=== PATIENT | female | born 2000 | race Caucasian/White ===

== ENCOUNTER 2023-05-11 19:21 | Emergency (ER) | payer OTHER, SELFPAY ==
[2023-05-11 19:23] VITALS: BP 120/85
[2023-05-11 19:44] LABS: % Basophils 0.6 % (0-2); % Eosinophils 0.8 % (0-6); % Immature Granulocytes 0.3 % (0-0.5); % Lymphocytes 22.5 % (20.5-51.1); % Monocytes 8.6 % (1.7-9.3); % Neutrophils 67.2 % (42.2-75.2); Absolute Basophils 0.1 10^3/uL (0-0.2); Absolute Eosinophils 0.1 10^3/uL (0-0.7); Absolute Lymphocytes 2.6 10^3/uL (1.2-3.4); Absolute Neutrophils 7.8 10^3/uL (1.4-6.5); Hematocrit 37.8 % (37.0-47.0); Hemoglobin 13.5 g/dL (12.0-16.0); Mean Corp Hgb Conc. 35.7 g/dL (33.0-37.0); Mean Corpuscular Hgb 31.8 pg (27.0-31.0); Mean Corpuscular Volume 88.9 fL (81.0-99.0); Mean Platelet Volume 10.6 fL (7.4-10.4); Nucleated Red Blood Cells % 0 %; Platelet Count 228 10^3/uL (130-400); Red Blood Cell Count 4.25 10^6/uL (4.20-5.40); Red Cell Dist. Width 11.8 % (11.5-14.5); Urine Albumin Negative (Neg - Trace); Urine Bilirubin Negative (Negative); Urine Character Clear (Clear); Urine Color Yellow; Urine Glucose Negative (Negative); Urine Ketone Negative (Negative); Urine Leukocyte Negative (Negative); Urine Nitrite Negative (Negative); Urine Occult Blood Negative (Negative); Urine Urobilinogen Negative (Neg - 1+); White Blood Cell Count 11.6 10^3/uL (4.8-10.8)
[2023-05-11 19:56] LABS: HCG, Serum Qualitative Screen Negative
[2023-05-11 20:00] LABS: ALT (SGPT) 17 U/L (0-35); AST (SGOT) 24 U/L (14-36); Albumin 4.3 g/dl (3.5-5.0); Alkaline Phosphatase 45 U/L (38-126); Blood Urea Nitrogen 9 mg/dl (7-17); Calcium 9.6 mg/dl (8.4-10.2); Carbon Dioxide 30 mmol/L (22-30); Chloride 99 mmol/L (98-107); Glucose 85 mg/dl (70-99); Potassium 4.1 mmol/L (3.5-5.1); Sodium 138 mmol/L (135-145); Total Bilirubin 0.9 mg/dl (0.2-1.3); eGFR > 60.00
[2023-05-11 20:01] LABS: Lipase 136 U/L (23-300)
--- NOTE | 2023-05-11 20:18 | ED.GENMED ---
History of Present Illness
General
Chief Complaint: Abdominal Pain
Source: patient
Exam Limitations: none
Time Seen by Provider: 05/11/23 20:03
Travel History
Have you had any contact with someone who has COVID-19?: No
Do you have any symptoms of coronavirus? Fever > 100 degrees, chills, cough, shortness of breath, sore throat, loss of taste or smell, muscle aches, or headache?: No
History of Present Illness
History of Present Illness:
This is a 23 year old female that comes in with c/o right sided lower abd pain. States that last night at 4am she was awakened with pain. States that she went to [place] and on the way back she kind of felt faint. States that she took something for
pain and it took her about 1 hour to fall back to sleep. States that she worked today. States that all day she felt like her abd just felt swollen. State that she conroy discomfort on the right side. States that she is not due for her Period for another
2 weeks. States that she recently had an IUD placed. Denies any fever, chills, chest pain, SOB, nausea, vomiting, diarrhea, headahe, dizziness, urinary burning.
Past History
Past History
ED Past Medical History: Other (IUD , )
ED Past Surgical History: None and Tonsilectomy
Social History
Tobacco: Non-smoker
Alcohol: Occasional
Personal: Single
Living: with family
Employment: Employed
Review of Systems
Review of Systems
All Other Systems: ROS reviewed and negative except as documented in HPI and ROS
Constitutional: Reports no symptoms; Denies fever or chills
EENT: Reports no symptoms
Respiratory: Reports no symptoms; Denies cough or trouble breathing
Cardiac: Reports no symptoms; Denies chest pain
ABD/GI: Reports abdominal pain (Right Sided); Denies nausea or diarrhea
: Reports no symptoms; Denies dysuria, frequency or urgency
Musculoskeletal: Reports no symptoms
Skin: Reports no symptoms
Neurological: Reports no symptoms; Denies dizzy or headache
Psychiatric: Reports no symptoms
Phy Exam
General Physical Exam
General Presentation: well appearing and no apparent distress
General age: appears stated age
General Skin: warm and dry
General Habitus: normal
General Mental: alert
General Hydration: appears well hydrated
ENT Exam
ENT Exam: TM's normal, pharynx normal and neck supple
Eye Exam
Eye Exam: EOMI
Cardiovascular Exam
Cardiovascular Exam: regular rate/rhythm, no edema, no murmur and normal peripheral pulses
Pulmonary Exam
Pulmonary Exam: lungs clear, no respiratory distress, no rales, chest non tender, no crackles, no rhonchi, no wheezing and no cough
Gastrointestinal Exam
Gastrointestinal Exam: normal bowel sounds, soft, no organomegaly, no pulsatile mass, non distended and tender (Right lower abd tenderness with palpation)
Musculoskeletal Exam
Musculoskeletal Exam: full ROM and no edema
Skin Exam
Skin Exam: normal color, warm/dry, no rash and no petechia
Psychiatric Exam
Psychiatric Exam: normal mood/affect
Course
Orders/Labs/Results
Orders:
Orders
05/11/23 19:29
Test Result ONCE
05/11/23 19:37
CBC/With Diff [Complete Blood Count/With Diff] Urgent
CMP [Comprehensive Metabolic Panel] Urgent
HCG, Serum Qualitative Screen Urgent
Lipase Urgent
Urinalysis Reflex To Culture Urgent
Date Specimen was Collected: 05/11/23
Time Specimen was Collected: 19:28
05/11/23 20:17
0.9% Sodium Chloride 1000 ml [Nss] 1,000 ml IV BOLUS
Iohexol [Omnipaque] See Protocol PO NOW STA
US Pelvis [US Pelvis Only (non-obstetric)] Urgent
Comment:
Reason For Exam: Right sided abd pain
05/11/23 20:18
CT Abd/pel W Iv And Oral Contr Urgent
Comment:
Reason For Exam: right lower abd pain
Abnormal Lab Results
05/11/23
19:37
WBC 11.6 H 10^3/uL
(4.8-10.8)
MCH 31.8 H pg
(27.0-31.0)
MPV 10.6 H fL
(7.4-10.4)
Absolute Neuts (auto) 7.8 H 10^3/uL
(1.4-6.5)
Absolute Monos (auto) 1.0 H 10^3/uL
(0.1-0.6)
05/11/23 19:37
05/11/23 19:37
WBC very slightly elevated. HCG negative, Urine negative for infection.
Vital Signs
Initial and Last Documented VS:
Initial Vital Signs
Temp Pulse Resp BP Pulse Ox
97.8 F 91 18 120/85 98
05/11/23 19:23 05/11/23 19:23 05/11/23 19:23 05/11/23 19:23 05/11/23 19:23
Last Documented Vital Signs
Temp Pulse Resp BP Pulse Ox
97.8 F 86 18 117/80 98
05/11/23 19:23 05/11/23 22:55 05/11/23 19:23 05/11/23 22:55 05/11/23 19:23
MDM/Problems Addressed
Differential Diagnosis Includes:
Ovarian cyst, Appendicitis
MDM/Problems Addressed:
This is a 23 year old female that comes in with c/o RLQ pain. states that this started a 4am and has continued throughout the day.
Will get labs, Pelvic ultrasound and have patient drink for CT. If US gives answer will hold off on CT scan.
back to see patient. Patient was told earlier that her US was normal. Explained at this time that her CT is negative for appendicitis and does show some fecal material in the abd proximal colon. There is also an Intussusception in the left upper
quadrant but patient has no pain there at all. Patient has not had any vomiting. Explained that she can follow up with the GI specialist for further evaluation. Patient states that she has stool softners at home and will increase her water. Patient
to return with increased or changing pain.
Chronic conditions affecting care:
NA
Acute Exacerbation and/or Progression of Chronic Illness:
NA
*Radiology
Radiology exam reviewed: radiology read reviewed (US=IUD in the endometrial canal. Normal sonographic appearance of the Ovaries. CT- Moderate amount of fecal material in the proximal colon. Mild periportal edema in the liver. Small benigh
nonobstrcging jejunal-Jejunal intussusception in the left upper quadrant. IUD in the endometrial canal)
*Pulse Oximetry
Patient hypoxic: no
*EKG
Interpreted by ED Provider?: NA
Rate: EKG- N/A
*Tight Cooper Interpretation
Rate: Tight Cooper- N/A
*Critical Care Note
Total Time (30-74mins, 75-104mins- exclusive of procedures): Not Applicable
ED Attending Note
-
Portions of this chart may have been created with voice recognition software.� Occasional wrong word or��sound alike� substitutions may have occurred due to the inherent limitations of voice recognition software.
Discharge Plan
Departure
Patient Disposition: Home (Routine Discharge)
Date of Disposition: 05/11/23
Time of Disposition: 23:25
Patient with high blood pressure during this ER visit?: No
Condition: Good
Covid-19: Not Applicable
Discharge Problem:
Constipation, Intussusception intestine
Instructions: Constipation, Adult (DC), Intussusception (DC)
Prescriptions:
No Action
clindamycin palmitate HCl [Cleocin Pediatric] 150 MG/10 ML recon soln
300 mg PO TID Qty: 600 0RF
prednisolone 15 MG/5 ML solution
45 mg PO DAILY Qty: 75 0RF
Referrals:
Yifan Patiño MD [Active] - Call in 1-3 days for appt
Maribel Sainz MD [Family Provider] - Call in 1-3 days for appt
Activity Restrictions/Additional Instructions:
As discussed, your blood work shows that your white blood cell count is slightly elevated. Your US is normal and your IUD is in place. Your CT shows that there is stool in the proximal Colon. This is the cause of you pain as the appendix is normal.
There is also Intussusception in the left upper quadrant. This can sometimes just been seen with normal peristalsis. However, if you develop upper abd pain or vomiting you will need to be seen. Please follow up with the GI specialist for further
evaluation. Please increase your water intake to 8-8oz glasses daily. IF YOU HAVE INCREASED OR CHANGING PAIN, OR YOU HAVE ANY OTHER CONCERNS PLEASE RETURN TO THE EMERGENCY ROOM.
Interventions
Interventions:
*Risk Screen - Suicide Last Done: 05/11/23 19:23
*General Assessment Last Done: 05/11/23 19:23
*Neglect/Abuse Screening Last Done: 05/11/23 19:23
*ED COVID-19 Vaccine History Last Done: 05/11/23 19:23
PV-Ncbrfv-Upacbehtck Assessment Last Done: 05/11/23 20:51
[2023-05-11] MEDS: OMNIPAQUE 50 ML PO (20:31)
[2023-05-11] MEDS: NSS 1000 IV (20:31)
[2023-05-11 22:55] VITALS: BP 117/80
[2023-05-11 23:34] VITALS: BP 117/80
== END 2023-05-11 23:36 | disposition home or self-care (01) ==
LOC: EMR 19:21
PROVIDERS: Emergency Medicine; EMERGENCY PHYSICIAN Emergency Medicine; FAMILY PHYSICIAN Family Medicine
DX: K56.1 Intussusception (principal); K59.00 Constipation, unspecified
CPT/HCPCS: 99285; 96360; 74177; 76856; 80053; 81003; 83690; 84703; 85025; Q9967

== ENCOUNTER → 2024-01-23 07:56 | Outpatient (REF) | payer BC, SELFPAY | LOC: WDC 07:56 | PROVIDERS: ATTENDING PHYSICIAN Nurse Practitioner Adult Health; FAMILY PHYSICIAN Family Medicine | DX: N63.20 Unspecified lump in the left breast, unspecified quadrant (principal); N63.21 Unspecified lump in the left breast, upper outer quadrant | CPT/HCPCS: 76642 ==